=== PATIENT | male | born 1960 | race Caucasian/White ===

== ENCOUNTER 2019-07-14 10:44 | Emergency (ER) | payer MEDICARE ==
--- NOTE | 2019-07-14 11:13 | ED ---
GI/ HPI - HPI Summary HPI Summary: 59-year-old male presents with dysuria for the past couple days. He admits to urgency and frequency. He states that he has had some urine dribbling without his control. Denies any back pain. No bowel issues. no abdominal pain. no nausea or vomiting. he denies any testicular pain. He states that he has pain at the tip of his penis. He denies any flank pain. - History of Current Complaint Chief Complaint: EDUrogenitalProblems Time Seen by Provider: 07/14/19 10:52 Stated Complaint: PROBLEMS URINATING PER PT Pain Intensity: 0 - Allergy/Home Medications Allergies/Adverse Reactions: Allergies Allergy/AdvReac Type Severity Reaction Status Date / Time No Known Allergies Allergy Verified 07/14/19 10:50 PMH/Surg Hx/FS Hx/Imm Hx Endocrine/Hematology History: Denies: Hx Anticoagulant Therapy Respiratory History: Denies: Hx Asthma Infectious Disease History: No Infectious Disease History: Denies: Traveled Outside the [place] in Last 30 Days - Family History Known Family History: Positive: Non-Contributory - Social History Alcohol Use: Occasionally Substance Use Type: Reports: Marijuana Substance Use Comment - Amount & Last Used: occassional Smoking Status (MU): Heavy Every Day Tobacco Smoker Review of Systems Negative: Fever Negative: Chest Pain Negative: Shortness Of Breath Positive: dysuria, frequency, urgency. Negative: flank pain All Other Systems Reviewed And Are Negative: Yes Physical Exam Triage Information Reviewed: Yes Vital Signs On Initial Exam: Initial Vitals Temp Pulse Resp BP Pulse Ox 97.5 F 100 18 153/97 97 07/14/19 10:46 07/14/19 10:46 07/14/19 10:46 07/14/19 10:46 07/14/19 10:46 Vital Signs Reviewed: Yes Appearance: Positive: Well-Appearing Skin: Positive: Warm, Dry Head/Face: Positive: Normal Head/Face Inspection Eyes: Positive: Normal, Conjunctiva Clear ENT: Positive: Pharynx normal Respiratory/Lung Sounds: Positive: Clear to Auscultation, Breath Sounds Present Cardiovascular: Positive: Normal, RRR Abdomen Description: Positive: Soft, Other: - suprapubic tenderness Bowel Sounds: Positive: Present Musculoskeletal: Positive: Normal Neurological: Positive: Normal Psychiatric: Positive: Normal Procedures - Sedation Patient Received Moderate/Deep Sedation with Procedure: No Diagnostics - Vital Signs Vital Signs Temp Pulse Resp BP Pulse Ox 07/14/19 10:46 97.5 F 100 18 153/97 97 - Laboratory Result Diagrams: 07/14/19 11:21 07/14/19 11:20 Lab Statement: Any lab studies that have been ordered have been reviewed, and results considered in the medical decision making process. Re-Evaluation - Re-Evaluation First Eval Re-Evaluation Time: 12:30 Comment: discussed conde and patient agrees Second Eval Re-Evaluation Time: 12:48 Comment: patient now refusing conde wants to just be on flomax, discussed do need to straight cath as still hsa 800 urine even though patient says he just urinated more GIGU Course/Dx - Course Course Of Treatment: 59-year-old male presents with dysuria for the past couple days. He admits to urgency and frequency. He states that he has had some urine dribbling without his control. Denies any back pain. No bowel issues. no abdominal pain. no nausea or vomiting. he denies any testicular pain. He states that he has pain at the tip of his penis. He denies any flank pain. On exam tenderness suprapubic. bladder scan 800. urine shows no infection or hematuria. wbc 13. crp elevated. do not suspect prostatitis at this time as afebrile and appears well. will have conde placed. patient then refused conde will only allow straight cath. straight cath 800ml. wants to try flomax and urinate at home. discussed risk and patient states will come back if unable to urinate or continues to retain. told follow up with urology. patient understand and agrees with plan. - Diagnoses Differential Diagnoses - Male: Ureteral Calculi, Urinary Tract Infection, Other - urinary retention Provider Diagnoses: Urinary retention Discharge ED - Sign-Out/Discharge Documenting (check all that apply): Patient Departure - Discharge Plan Condition: Good Disposition: HOME Prescriptions: Tamsulosin CAP* [Flomax CAP*] 0.4 mg PO DAILY #7 cap Patient Education Materials: Urinary Retention in Men (ED) Referrals: Gibran Cedillo MD [Medical Doctor] - Additional Instructions: take flomax once a day follow up with urology Return to ED if develop any new or worsening symptoms - Billing Disposition and Condition Condition: GOOD Disposition: Home
[2019-07-14 11:30] LABS: Urine Appearance Clear; Urine Bilirubin Negative (Negative); Urine Blood Negative (Negative); Urine Color Yellow; Urine Glucose Negative (Negative); Urine Ketones Negative (Negative); Urine Nitrite Negative (Negative); Urine Protein Negative (Negative); Urine Specific Gravity 1.017 (1.010-1.030); Urine Urobilinogen Negative (Negative)
[2019-07-14 11:36] LABS: ABS Basophils 0.1 10^3/ul (0-0.2); ABS Eosinophils 0.4 10^3/ul (0-0.6); ABS Lymphocytes 2.7 10^3/ul (1.0-4.8); ABS Monocytes 1.1 10^3/ul (0-0.8); ABS Neutrophils 8.9 10^3/ul (1.5-7.7); Eosinophil % 3.2 %; Hematocrit 44 % (42-52); Hemoglobin 15.1 g/dL (14.0-18.0); Lymphocyte % 20.5 %; Mean Corpuscular HGB Conc 34 g/dL (31-36); Mean Corpuscular Hemoglobin 32 pg (27-31); Mean Corpuscular Volume 92 fL (80-94); Mean Platelet Volume 11.2 fL (7.4-10.4); Nucleated Red Blood Cells % 0.1; Platelet Count 155 10^3/uL (150-450); Red Blood Count 4.77 10^6 /uL (4.18-5.48); Red Cell Distribution Width 15 % (10-15); White Blood Count 13.3 10^3/uL (3.5-10.8)
[2019-07-14 11:50] LABS: Albumin 4.5 g/dL (3.2-5.2); Albumin/Globulin Ratio 1.5 (1-3); BUN/Creatinine Ratio 20.2 (8-20); C Reactive Protein 19.19 mg/L (<8.01); Calcium 9.4 mg/dL (8.6-10.3); EGFR African American 94.3 (>60); EGFR Non-African American 77.9 (>60); Globulin 3.1 g/dL (2-4); Potassium 3.8 mmol/L (3.5-5.0); Total Bilirubin 0.5 mg/dL (0.2-1.0); Total Protein 7.6 g/dL (6.4-8.9)
[2019-07-14] MEDS ORDERED: Tamsulosin CAP* 0.4 MG PO ONE (12:37)
[2019-07-14 13:10] VITALS: BP 158/109
[2019-07-17 15:42] LABS: Chlamydia trachomatis NAA Negative (Negative); Neisseria gonorrhoeae (GC) NAA Negative (Negative)
== END 2019-07-14 13:09 | disposition home or self-care (01) ==
LOC: ED 10:44
DX: R33.9 Retention of urine, unspecified (principal); F17.210 Nicotine dependence, cigarettes, uncomplicated
CPT/HCPCS: 36415; 80053; 81003; 84153; 85025; 86140; 87491; 87591; 99283

== ENCOUNTER 2019-07-16 08:54 | Emergency (ER) | payer MEDICARE ==
--- NOTE | 2019-07-16 09:15 | ED ---
GI/ HPI - HPI Summary HPI Summary: 59 year old male presents to the ED with a chief complaint of frequent urination since 2 days ago, alongside the inability to completely void his bladder. He reports increased urge to urinate while lying down as well as suprapubic pain of 4/10 severity. Patient presented to [facility] 2 days ago with the same symptoms. He requests a catheter to aide urination. Patient smokes tobacco. - History of Current Complaint Chief Complaint: EDUrogenitalProblems Time Seen by Provider: 07/16/19 09:02 Stated Complaint: DIFFICULTY URINATING PER PT Hx Obtained From: Patient Onset/Duration: Started Days Ago, Still Present Timing: Constant Severity: Moderate Current Severity: Moderate Pain Intensity: 4 Location of Pain: Suprapubic Associated Signs and Symptoms: Positive: Dysuria - Allergy/Home Medications Allergies/Adverse Reactions: Allergies Allergy/AdvReac Type Severity Reaction Status Date / Time No Known Allergies Allergy Verified 07/16/19 08:59 PMH/Surg Hx/FS Hx/Imm Hx Endocrine/Hematology History: Denies: Hx Anticoagulant Therapy Respiratory History: Denies: Hx Asthma - Surgical History Surgical History: None Infectious Disease History: No Infectious Disease History: Denies: Traveled Outside the [place] in Last 30 Days - Family History Known Family History: Positive: Non-Contributory - Social History Alcohol Use: Occasionally Substance Use Type: Reports: Marijuana Substance Use Comment - Amount & Last Used: occassional Smoking Status (MU): Heavy Every Day Tobacco Smoker Review of Systems Negative: Fever Positive: Abdominal Pain Positive: dysuria, frequency, other - urinary retention All Other Systems Reviewed And Are Negative: Yes Physical Exam - Summary Physical Exam Summary: Appearance: The patient is well-nourished in no acute distress and in no acute pain. Skin: The skin is warm and dry, and skin color reflects adequate perfusion. HEENT: The head is normocephalic and atraumatic. The pupils are equal and reactive. The conjunctivae are clear and without drainage. Nares are patent and without drainage. Mouth reveals moist mucous membranes, and the throat is without erythema and exudate. The external ears are intact. The ear canals are patent and without drainage. The tympanic membranes are intact. Neck: The neck is supple with full range of motion and non-tender. There are no carotid bruits. There is no neck vein distension. Respiratory: Chest is non-tender. Lungs are clear to auscultation and breath sounds are symmetrical and equal. Cardiovascular: Heart is regular rate and rhythm. There is no murmur or rub auscultated. There is no peripheral edema and pulses are symmetrical and equal. Abdomen: The abdomen is soft. There are normal bowel sounds heard in all four quadrants and there is no organomegaly palpated. Tender suprapubic area. Musculoskeletal: There is no back tenderness noted. Extremities are non-tender with full range of motion. There is good capillary refill. There is no peripheral edema or calf tenderness elicited. Neurological: Patient is alert and oriented to person, place and time. The patient has symmetrical motor strength in all four extremities. Cranial nerves are grossly intact. Deep tendon reflexes are symmetrical and equal in all four extremities. Psychiatric: The patient has an appropriate affect and does not exhibit any anxiety or depression. Genital: US shows approximately a liter of urine in bladder. Triage Information Reviewed: Yes Vital Signs On Initial Exam: Initial Vitals Temp Pulse Resp BP Pulse Ox 98.8 F 121 16 128/99 97 07/16/19 08:56 07/16/19 08:56 07/16/19 08:56 07/16/19 08:56 07/16/19 08:56 Vital Signs Reviewed: Yes Procedures - Sedation Patient Received Moderate/Deep Sedation with Procedure: No Diagnostics - Vital Signs Vital Signs Temp Pulse Resp BP Pulse Ox 07/16/19 08:56 98.8 F 121 16 128/99 97 - Laboratory Lab Statement: Any lab studies that have been ordered have been reviewed, and results considered in the medical decision making process. GIGU Course/Dx - Course Course Of Treatment: I bladder scanned him and found about 800 cc in his bladder. We placed a Lucas catheter and indeed about 800 cc came out. There was only a small amount of microscopic blood in it, no sign of infection. Relieving the Lucas catheter in place with a leg bag I recommended follow-up with urology. He already has an appointment with urology for tomorrow. - Diagnoses Provider Diagnoses: Urinary retention Discharge ED - Sign-Out/Discharge Documenting (check all that apply): Patient Departure - discharge home - Discharge Plan Condition: Stable Disposition: HOME Patient Education Materials: Urinary Retention in Men (ED), Lucas Catheter Placement and Care (ED) Referrals: Jay Munson MD [Medical Doctor] - Additional Instructions: Follow up with Dr. Munson tomorrow. Return to the Emergency Department if you experience new or worsened symptoms. Please read instructions on Lucas Catheter usage. - Billing Disposition and Condition Condition: STABLE Disposition: Home - Attestation Statements Document Initiated by Daveibюлия: Yes Documenting Scribe: Deven Mendez Provider For Whom Scribe is Documenting (Include Credential): Rafa Flores MD Scribe Attestation: I, Deven Mendez, scribed for Rafa Flores MD on 07/16/19 at 1300. Scribe Documentation Reviewed: Yes Provider Attestation: The documentation as recorded by the Deven harris accurately reflects the service I personally performed and the decisions made by me, Rafa Flores MD Status of Scribe Document: Viewed
[2019-07-16] MEDS ORDERED: Lidocaine 2% JELLY* 10 ML JELLY TOPICAL ONE (10:25)
[2019-07-16] MEDS ORDERED: Lidocaine 2% JELLY* 6 ML JELLY TOPICAL ONE (10:27)
[2019-07-16 11:37] LABS: Urine Appearance Clear; Urine Bilirubin Negative (Negative); Urine Blood 1+ (Negative); Urine Color Yellow; Urine Glucose Negative (Negative); Urine Ketones Negative (Negative); Urine Nitrite Negative (Negative); Urine Protein Negative (Negative); Urine Specific Gravity 1.021 (1.010-1.030); Urine Urobilinogen Negative (Negative)
[2019-07-16 11:39] LABS: Urine Bacteria Absent (Absent); Urine Red Blood Cell 1+(3-5/hpf) (Absent); Urine Squamous Epithelial Cell Present (Absent); Urine White Blood Cell Trace(0-5/hpf) (Absent)
[2019-07-16 12:13] VITALS: BP 170/96
== END 2019-07-16 12:10 | disposition home or self-care (01) ==
LOC: ED 08:54
DX: R33.9 Retention of urine, unspecified (principal); R30.0 Dysuria; R35.0 Frequency of micturition; R10.30 Lower abdominal pain, unspecified; F17.200 Nicotine dependence, unspecified, uncomplicated
CPT/HCPCS: 51702; 81003; 81015; 87086; 99282; A9270-GY